=== PATIENT | female | born 2000 | race Caucasian/White ===

== ENCOUNTER 2025-02-18 09:29 | Outpatient (CLI) | payer OTHER ==
[~2025-02-18 09:29] MED LIST: PROVENTIL3 ML/2.5 M IH; SYMBICORT 16010.2 GM IH; ZITHROMAX500 MG PO; ZYNCOF 20-400120 ML PO
== END 2025-02-18 09:33 | disposition home or self-care (01) ==
LOC: SONOGRAMA 09:29
PROVIDERS: ATTEND Internal Medicine Gastroenterology
DX: N83.209 Unspecified ovarian cyst, unspecified side (principal); R10.13 Epigastric pain

== ENCOUNTER 2025-04-12 13:15 | Emergency (ER) | payer OTHER ==
[~2025-04-12] VITALS: Ht 160 cm; Wt 59.0 kg
[2025-04-12] MEDS ORDERED: LEVOTHYROXINE25 MCG (13:44)
[2025-04-12] MEDS ORDERED: 0.9 % SODIUM CHLORIDE 500 ML IV STA (14:51)
[2025-04-12 15:46] LABS: BASO % 0.2 % (0.1-1.2); EOS # 0.06 (0.04-0.54); EOS % 1.4 % (0.7-7.0); HEMATOCRIT 34.6 % (34.1-44.9); HEMOGLOBIN 11.1 g/dL (11.2-15.7); LYMPH % 6.8 % (19.3-53.1); MEAN CORPUSCULAR HEMOGLOBIN 25.4 pg (25.6-32.2); MONO # 0.28 (0.24-0.82); MONO % 6.4 % (4.7-12.5); NEUT # 3.74 (1.56-6.13); PLATELET COUNT 314 K/uL (163-369); RED BLOOD COUNT 4.37 M/uL (3.93-5.22); RED CELL DISTRIBUTION WIDTH 14.6 % (11.6-14.4)
[2025-04-12 16:31] LABS: PH,URINE 5.5 (5.0-8.0); URINE APPEARANCE Cloudy; URINE BILIRRUBIN Negative (NEGATIVE); URINE BLOOD Large; URINE COLOR Dark Yellow; URINE GLUCOSE Negative (NEGATIVE); URINE LEUKOCYTE Trace; URINE NITRATE Negative; URINE PROTEIN 30 (NEGATIVE)
[2025-04-12 16:36] LABS: URINE BACTERIA 5112.5 uL (0.0-1933); URINE CAST 1.76 uL (0.0-1.40); URINE RBC 22.5 uL (0.0-20.8); URINE WBC 42.7 uL (0.0-23.2)
[2025-04-12 17:02] LABS: BILIRUBIN TOTAL 0.22 mg/dL (0.3-1.2); CALCIUM 9.3 mg/dL (8.5-10.1); CREATININE SERUM 0.91 mg/dL (0.55-1.02); GFR 74.15; POTASSIUM 4.02 mEq/L (3.5-5.1)
[2025-04-12 17:07] LABS: URINE KETONE 40 (NEGATIVE)
[2025-04-12 17:11] LABS: COVID-19 AG NEGATIVE (NEGATIVE)
[2025-04-12 17:12] LABS: URINE YEAST NEGATIVE /hpf
[2025-04-12 17:33] LABS: INFLUENZA A AG NEGATIVE (NEGATIVE)
[2025-04-12] MEDS ORDERED: CEFTRIAXONE SODIUM 2,000 MG VIAL IV STA (17:34)
[2025-04-12 17:35] LABS: INFLUENZA B AG POSITIVE (NEGATIVE)
[2025-04-12] MEDS ORDERED: CEFTRIAXONE SODIUM 2,000 MG VIAL ONE (17:42)
[2025-04-12] MEDS ORDERED: OSEL75CA PO (19:29)
== END 2025-04-12 20:13 | disposition home or self-care (01) ==
LOC: ER 13:15
DX: J10.1 Influenza due to other identified influenza virus with other respiratory manifestations (principal); N39.0 Urinary tract infection, site not specified; E03.9 Hypothyroidism, unspecified; D64.9 Anemia, unspecified; E16.2 Hypoglycemia, unspecified; Z20.822 Contact with and (suspected) exposure to COVID-19

== ENCOUNTER 2025-04-15 07:51 | Emergency (ER) | payer OTHER ==
[~2025-04-15] VITALS: Ht 160 cm; Wt 53.5 kg
[~2025-04-15 07:51] MED LIST changes: +LEVOTHYROXINE25 MCG; +OSEL75CA PO
[2025-04-15] MEDS ORDERED: 0.9 % SODIUM CHLORIDE 1,000 ML IV ONE (08:30)
[2025-04-15] MEDS ORDERED: FAMOtidine 10 MG/ML (4ML VIAL) IV ONE (08:30)
[2025-04-15] MEDS ORDERED: METHYLPREDNISOLONE SOD SUCC 125 MG VIAL IV ONE (08:30)
[2025-04-15] MEDS ORDERED: IPRATROPIUM BROMIDE 0.5 MG/2.5 ML AMPUL.NEB IH ONE ×2 (08:30→10:34)
[2025-04-15] MEDS ORDERED: LEVALBUTEROL HCL 1.25 MG/3 ML SOLUTION IH ONE ×2 (08:30→10:33)
[2025-04-15] MEDS ORDERED: DIPHENHYDRAMINE HCL 50 MG/ML VIAL 1ML IV ONE (08:30)
[2025-04-15] MEDS ORDERED: METHYLPREDNISOLONE SOD SUCC 125 MG VIAL ONE (09:40)
[2025-04-15] MEDS ORDERED: FAMOTIDINE/PF 20 MG/2 ML VIAL ONE (09:40)
[2025-04-15] MEDS ORDERED: DIPHENHYDRAMINE HCL 50 MG/ML VIAL 1ML ONE (09:40)
[2025-04-15 10:34] LABS: EOS # 0.03 (0.04-0.54); HEMATOCRIT 30.7 % (34.1-44.9); HEMOGLOBIN 10.4 g/dL (11.2-15.7); LYMPH % 10.2 % (19.3-53.1); MEAN CORPUSCULAR HEMOGLOBIN 25.9 pg (25.6-32.2); MONO # 0.08 (0.24-0.82); MONO % 2.7 % (4.7-12.5); NEUT # 2.51 (1.56-6.13); NEUT % 85.8 % (34.0-71.1); PLATELET COUNT 145 K/uL (163-369); RED BLOOD COUNT 4.02 M/uL (3.93-5.22); RED CELL DISTRIBUTION WIDTH 14.6 % (11.6-14.4)
[2025-04-15] MEDS ORDERED: ACETAMINOPHEN 325 MG TABLET PO ONE (11:00)
[2025-04-15 11:08] LABS: ABG PH 7.497 (7.35-7.45); ABG PO2 110.3 mmHg (80-100); BASE EXCESS -6.2 mmol/l; BICARBONATE 14.1 mmol/l (23-25); SaO2 98.7 %; Tco2 14.7 mmol/l
[2025-04-15 11:10] LABS: INR 1.18; PROTHROMBIN TIME 12.7 SECONDS (9.0-11.5)
[2025-04-15 11:14] LABS: PARTIAL THROMBOPLASTIN TIME 39.3 SECONDS (22.0-34.0)
[2025-04-15 11:44] LABS: ABG pCO2 18.6 mmHg (35-45); allen test SATISFACTORY; mode ROOM AIR; o2 21 %; puncture site RADIAL RIGHT
[2025-04-15 12:33] LABS: ALBUMIN 3.3 gm/dL (3.4-5.0); ALKALINE PHOSPHATASE 53 U/L (50-136); ALT/SGPT 114 U/L (12-78); ANION GAP 14 (10.0-20.0); AST/SGOT 140 U/L (15-37); BILIRUBIN TOTAL 0.23 mg/dL (0.3-1.2); BLOOD UREA NITROGEN 12 mg/dL (7-18); BUN CREA RATIO 14 (7.0-25.0); CALCIUM 8.5 mg/dL (8.5-10.1); CARBON DIOXIDE 20 mEq/L (21-32); CHLORIDE 103 mmol/L (98-107); CREATININE SERUM 0.85 mg/dL (0.55-1.02); GFR 80.23; GLOBULINA 4.5 G/DL (2.4-3.5); GLUCOSE FASTING 107 mg/dL (65-100); OSMOLALITY SERUM 267 MOSM/KG (275-295); POTASSIUM 3.56 mEq/L (3.5-5.1); SODIUM 133 mmol/L (136-145); TOTAL PROTEIN 7.8 gm/dL (6.4-8.2)
[2025-04-15 12:34] LABS: HCG QUANTITATIVE < 1 mUI/mL (1-3)
[2025-04-15 13:24] LABS: PH,URINE 6.5 (5.0-8.0); URINE APPEARANCE Clear; URINE BILIRRUBIN Negative (NEGATIVE); URINE BLOOD Negative; URINE GLUCOSE Negative (NEGATIVE); URINE KETONE 15 (NEGATIVE); URINE LEUKOCYTE Trace; URINE NITRATE Negative; URINE PROTEIN Trace (NEGATIVE); URINE UROBILINOGEN 0.2 E.U./dl
[2025-04-15 13:32] LABS: URINE EPITHELIAL CELLS 40.2 uL (0.0-38.8); URINE RBC 5.5 uL (0.0-20.8); URINE WBC 22.6 uL (0.0-23.2)
[2025-04-15 13:35] LABS: URINE COLOR YelloW
[2025-04-15] MEDS ORDERED: PROTONIX40 MG PO (13:39)
[2025-04-15] MEDS ORDERED: BACTRIM DS TAB1 EACH PO (13:39)
[2025-04-15] MEDS ORDERED: ZOFRAN8 MG PO (13:39)
[2025-04-16] MEDS ORDERED: CIPRO500 MG PO (22:59)
[2025-04-16] MEDS ORDERED: PYRIDIUM200 MG PO (22:59)
[2025-04-16] MEDS ORDERED: MONISTAT 745 GM VAG (23:02)
== END 2025-04-15 14:47 | disposition home or self-care (01) ==
LOC: ER 07:51
PROVIDERS: General Practice
DX: A90 Dengue fever [classical dengue] (principal); E03.9 Hypothyroidism, unspecified

== ENCOUNTER 2025-04-16 14:52 | Emergency (ER) | payer OTHER ==
[~2025-04-16] VITALS: Ht 160 cm; Wt 53.5 kg
[~2025-04-16 14:52] MED LIST changes: +BACTRIM DS TAB1 EACH PO; +PROTONIX40 MG PO; +ZOFRAN8 MG PO
[2025-04-16] MEDS ORDERED: DIPHENHYDRAMINE HCL 50 MG/ML VIAL 1ML IV ONE (16:45)
[2025-04-16] MEDS ORDERED: 0.9 % SODIUM CHLORIDE 1,000 ML IV SCH (16:45)
[2025-04-16] MEDS ORDERED: DIPHENHYDRAMINE HCL 50 MG/ML VIAL 1ML ONE (16:56)
[2025-04-16 17:27] LABS: EOS # 0.06 (0.04-0.54); EOS % 1.5 % (0.7-7.0); HEMOGLOBIN 10.3 g/dL (11.2-15.7); LYMPH # 0.76 (1.18-3.74); LYMPH % 19.2 % (19.3-53.1); MEAN CORPUSCULAR HEMOGLOBIN 25.6 pg (25.6-32.2); MONO # 0.07 (0.24-0.82); MONO % 1.8 % (4.7-12.5); NEUT # 3.05 (1.56-6.13); PLATELET COUNT 165 K/uL (163-369); RED BLOOD COUNT 4.02 M/uL (3.93-5.22); RED CELL DISTRIBUTION WIDTH 15.1 % (11.6-14.4)
[2025-04-16 17:49] LABS: INR 1.06; PARTIAL THROMBOPLASTIN TIME 34.1 SECONDS (22.0-34.0); PROTHROMBIN TIME 11.5 SECONDS (9.0-11.5)
[2025-04-16 17:58] LABS: ALBUMIN 3.4 gm/dL (3.4-5.0); BILIRUBIN TOTAL 0.29 mg/dL (0.3-1.2); BILIRUBIN,CONJUGATED 0.11 mg/dL (0.0-0.2); BILIRUBIN,UNCONJUGATED 0.18 mg/dL (0.0-0.6); CALCIUM 8.8 mg/dL (8.5-10.1); CREATININE SERUM 0.84 mg/dL (0.55-1.02); GFR 81.33; GLOBULINA 4.5 G/DL (2.4-3.5); POTASSIUM 3.47 mEq/L (3.5-5.1); TOTAL PROTEIN 7.9 gm/dL (6.4-8.2)
[2025-04-16] MEDS ORDERED: FLUCONAZOLE 150 MG TABLET PO ONE (18:45)
[2025-04-16] MEDS ORDERED: 0.9 % SODIUM CHLORIDE 1,000 ML IV ONE (18:45)
[2025-04-16 22:00] LABS: URINE APPEARANCE Clear; URINE BILIRRUBIN Negative (NEGATIVE); URINE BLOOD Large; URINE COLOR Dark Yellow; URINE GLUCOSE Negative (NEGATIVE); URINE KETONE 15 (NEGATIVE); URINE LEUKOCYTE Trace; URINE NITRATE Positive; URINE PROTEIN 30 (NEGATIVE)
[2025-04-16 22:04] LABS: URINE BACTERIA 6.1 uL (0.0-1933); URINE EPITHELIAL CELLS 22.1 uL (0.0-38.8); URINE RBC 606.7 uL (0.0-20.8); URINE WBC 7.5 uL (0.0-23.2)
[2025-04-16] MEDS ORDERED: ACETAMINOPHEN 500 MG GEL..CAP PO ONE ×2 (22:19→22:30)
[2025-04-16] MEDS ORDERED: METHYLPREDNISOLONE SOD SUCC 40 MG VIAL ONE (22:27)
[2025-04-16 22:44] LABS: URINE CAST 0.73 uL (0.0-1.40)
[2025-04-16 22:45] LABS: URINE YEAST NEGATIVE /hpf
[2025-04-16] MEDS ORDERED: PYRIDIUM200 MG PO (22:59)
[2025-04-16] MEDS ORDERED: CIPRO500 MG PO (22:59)
[2025-04-16] MEDS ORDERED: MONISTAT 745 GM VAG (23:02)
== END 2025-04-16 23:08 | disposition home or self-care (01) ==
LOC: ER 14:52
PROVIDERS: General Practice
DX: N39.0 Urinary tract infection, site not specified (principal); B34.9 Viral infection, unspecified